=== PATIENT | female | born 1995 | race Caucasian/White ===

== ENCOUNTER 2020-11-12 15:08 | Emergency (ER) | payer BC, OTHER ==
[~2020-11-12] VITALS: Ht 165.1 cm; Wt 65.3 kg
[2020-11-12] MEDS ORDERED: LEVOTHYROXINE75 MC1 PO (15:57)
[2020-11-12] MEDS ORDERED: DULOXETINE HCL20 MG PO (15:57)
== END 2020-11-12 20:45 | disposition home or self-care (01) ==
LOC: ED 15:08
DX: O99.891 Other specified diseases and conditions complicating pregnancy (principal); R10.31 Right lower quadrant pain; V49.9XXA Car occupant (driver) (passenger) injured in unspecified traffic accident, initial encounter; Z88.0 Allergy status to penicillin; Z88.1 Allergy status to other antibiotic agents; Z79.899 Other long term (current) drug therapy; Z3A.18 18 weeks gestation of pregnancy
CPT/HCPCS: 76815; 99284-25

== ENCOUNTER 2022-05-19 07:50 | Day surgery (SDC) | payer BC, OTHER ==
[~2022-05-19] VITALS: Ht 167.6 cm; Wt 70.5 kg
--- NOTE | ~2022-05-19 | OR ---
[facility] [address], [place] [address] Draft DATE OF OPERATION: 05/19/2022 SURGEON: Nasim Sandoval MD PREOPERATIVE DIAGNOSIS: Inferior turbinate hypertrophy, nasal obstruction. POSTOPERATIVE DIAGNOSIS: Inferior turbinate hypertrophy, nasal obstruction. PROCEDURE: Cautery bilateral inferior turbinates. 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 Curiel. HISTORY: Benjamin is a 26-year-old young lady with nasal congestion, nasal obstruction, difficulty breathing through her nose, chronic, unresponsive to appropriate medications. She has had a CAT scan of her sinuses, which was essentially negative, but did show enlarged turbinates. She is taken to the operating room for the above-mentioned procedures. PROCEDURE AND FINDINGS: After informed consent, the patient was taken to the operating room, placed in the supine position, where general LMA anesthesia was induced. The patient and procedure were verified. The patient was repositioned. The patient received preoperative intranasal oxymetazoline and intravenous Ancef. Headlight speculum exam of the nasal cavity showed nicely decongested turbinates. The septum was midline. The inferior turbinates were cauterized with a long handle needle point cautery starting on the left. Multiple transmucosal passes on the medial and inferior surface of the inferior turbinate starting anteriorly extending all the way back posteriorly. Excellent shrinkage of the turbinate was obtained in this manner. Improvement in the nasal airway. Minimal bleeding stopped afterwards. Same procedure on the right inferior turbinate. The packing was placed, one piece of Merocel trimmed, one piece each side coated with Neosporin tied anteriorly over a pad. The pharynx was suctioned clear of blood secretions. The patient was then awakened, extubated, and transported to the recovery room in good condition. No complications. BLOOD LOSS: Minimal. PATIENT NAME: BENJAMIN RAMIRES OPERATIVE REPORT DATE OF : [birth year] REPORT #: [id number] PHYSICIAN: NASIM SANDOVAL MD PCP: ANTONIO ORTIZ PAC REPORT IS CONFIDENTIAL AND NOT TO BE RELEASED WITHOUT AUTHORIZATION [address], [place] [address] Draft SPECIMEN: No specimens. DRAINS: No drains. PACKING: One piece of Merocel each nostril. Nasim Sandoval MD GC/MODL /[id number] Copies: ~ PATIENT NAME: BENJAMIN RAMIRES OPERATIVE REPORT DATE OF : [birth year] REPORT #: [id number] PHYSICIAN: NASIM SANDOVAL MD PCP: ANTONIO ORTIZ PAC REPORT IS CONFIDENTIAL AND NOT TO BE RELEASED WITHOUT AUTHORIZATION
[~2022-05-19 07:50] MED LIST: AMPHETAMINE SAL20 MG PO; DULOXETINE HCL20 MG PO; LEVOTHYROXINE75 MC1 PO
--- NOTE | 2022-05-19 10:45 | NUR ---
05/19/22 1045 Olivia Hogan 1041 PATIENT ARRIVES TO PACU UNRESPONSIVE TO PAIN. ORAL AIRWAY IN PLACE. RESP EVEN AND UNLABORED WITH INTERVENTION, MASK AT 6 LITERS.
--- NOTE | 2022-05-19 11:29 | NUR ---
PATIENT BACK IN DAY SURGERY ROOM FROM PACU. DROWSY. EASILY AWAKENS TO VOICE. DENIES PAIN AND NAUSEA. MOUSTACHE DRESSING CLEAN, DRY AND INTACT. VS CHECKED. SCDs ON. CALL LIGHT WITHIN REACH. TOLERATING ICE WATER.
[2022-05-19] MEDS ORDERED: CEPHALEXIN500 M1 PO (12:19)
[2022-05-19] MEDS ORDERED: HYDROCODON-ACE1 EA10 PO (12:19)
--- NOTE | 2022-05-19 12:53 | NUR ---
1230: PATIENT TOLERATED JELLO. DISCHARGE INSTRUCTIONS GIVEN TO PATIENT. PATIENT GETTING DRESSED. 1243: IV DC'D WNL. TIP INTACT. DRESSING APPLIED. PATIENT WALKED INDEPENDENTLY TO BATHROOM. PATIENT DISCHARGED TO HOME VIA WHEELCHAIR WITH [facility].
== END 2022-05-19 12:43 | disposition home or self-care (01) ==
LOC: DS 07:50 → OPS 07:50 → DS 10:30 → OPS 12:43
PROVIDERS: ATTEND Otolaryngology
PROC: 095L7ZZ Destruction of Nasal Turbinate, Via Natural or Artificial Opening (ICD-10-PCS; principal; 2022-05-19 10:00)
DX: J34.3 Hypertrophy of nasal turbinates (principal); J34.89 Other specified disorders of nose and nasal sinuses; Z88.1 Allergy status to other antibiotic agents
CPT/HCPCS: J0330; J0461; J0690; J1100; J1885; J2250; J2405; J2704; J2765; J3010; J7121